=== PATIENT | female | born 1985 | race American Indian/Alaskan Native ===

== ENCOUNTER 2016-07-25 10:41 | Emergency (ER) | payer SELFPAY ==
[2016-07-25 10:42] VITALS: BP 119/74; PULSE 98; RESP 16; TEMP 97; O2SAT 100
[2016-07-25 10:43] VITALS: BMI 24.0
--- NOTE | 2016-07-25 11:33 | ED PDOC ---
HPI: Psych/Substance Abuse Time Seen by Provider: 07/25/16 11:31 Chief Complaint (Nursing): Substance Abuse Chief Complaint (Provider): SUBSTANCE ABUSE History Per: Patient (30 Y/O FEMALE BROUGHT BY EMS FOR EVALUATION OF UNRESPONSIVENESS NOTED BY [employer]. PATIENT ADMITS HEROIN USE 6 HOURS PRIOR AND STATES SHE WAS WAITING FOR BROTHER IN LAW TO COME HOME [place]. STATES SHE HAD LOSS OF CONSCIOUSNESS AND HEAD INJURY 2 DAYS AGO. WAS SEEN AT [facility] AND EVALUATED THAT DAY. NOTES MILD HEADACHE TODAY BUT ATTRIBUTES TO "BEING IRRITATED." NO VOMITING/ETC.) Past Medical History Reviewed: Historical Data, Nursing Documentation, Vital Signs Vital Signs: Last Vital Signs Temp 97 F L 07/25/16 10:42 Pulse 98 H 07/25/16 10:42 Resp 16 07/25/16 10:42 BP 119/74 07/25/16 10:42 Pulse Ox 100 07/25/16 10:42 - Medical History PMH: Anxiety, Bipolar Disorder - Family History Family History: States: No Known Family Hx - Allergies Allergies/Adverse Reactions: Allergies Allergy/AdvReac Type Severity Reaction Status Date / Time Unobtainable Allergy Verified 07/25/16 10:48 Review of Systems ROS Statement: Except As Marked, All Systems Reviewed And Found Negative Physical Exam - Reviewed Nursing Documentation Reviewed: Yes Vital Signs Reviewed: Yes - Physical Exam Appears: Positive for: Well, Non-toxic, No Acute Distress Head Exam: Positive for: ATRAUMATIC, NORMAL INSPECTION, NORMOCEPHALIC Skin: Positive for: Normal Color, Warm, DRY Eye Exam: Positive for: EOMI, Normal appearance, PERRL ENT: Positive for: Normal ENT Inspection Neck: Positive for: Normal, Painless ROM Cardiovascular/Chest: Positive for: Regular Rate, Rhythm Respiratory: Positive for: CNT, Normal Breath Sounds Gastrointestinal/Abdominal: Positive for: Normal Exam, Bowel Sounds, Soft Back: Positive for: Normal Inspection Extremity: Positive for: Normal ROM Neurologic/Psych: Positive for: Alert, Oriented - Laboratory Results Result Diagrams: 07/25/16 11:37 07/25/16 11:37 - ECG O2 Sat by Pulse Oximetry: 100 - Progress ED Course And Treament: PATIENT ALERT IN ED. DOES NOT WANT HEAD CT EVALUATION. HAS CALLED HER SISTER TO PICK HER UP. WILL AWAIT ETOH LEVEL AND OBSERVE FOR SOBRIETY. OBSERVED IN ED WITH NO WORSENING OF MENTATION. SISTER IN ED TO TAKE PATIENT HOME. Disposition - Clinical Impression Clinical Impression: Polysubstance abuse - Patient ED Disposition Is Patient to be Admitted: No - Disposition Referrals: [facility] [Outside] Disposition: Routine/Home Disposition Time: 12:22 Condition: FAIR Instructions: Polysubstance Abuse (ED)
[2016-07-25 11:42] LABS: BASO # 0.1 K/uL (0.0-0.2); EOS # 0.5 K/uL (0.0-0.7); EOS % 8.5 % (0.0-4.0); HEMATOCRIT 40.8 % (34.0-47.0); LYMPH # 2.3 K/uL (1.0-4.3); LYMPH % 36.5 % (20.0-40.0); MEAN CELL VOLUME 90.7 fl (81.0-99.0); MEAN CORPUSCULAR HEMOGLOBIN 30.2 pg (27.0-31.0); MEAN CORPUSCULAR HGB CONC 33.3 g/dL (33.0-37.0); MEAN PLATELET VOLUME 7.3 fl (7.2-11.7); MONO # 0.7 K/uL (0.0-0.8); MONO % 11.6 % (0.0-10.0); NEUT # 2.7 K/uL (1.8-7.0); NEUT % 42.4 % (50.0-75.0); RED CELL DISTRIBUTION WIDTH 13.6 % (11.5-14.5); WHITE BLOOD COUNT 6.4 K/uL (4.8-10.8)
[2016-07-25 12:01] LABS: ALB/GLOB RATIO 1.1 (1.0-2.1); ALCOHOL SERUM < 10 mg/dl (0-10); ALKALINE PHOSPHATASE 96 U/L (38-126); ALT/SGPT 106 U/L (9-52); AST/SGOT 72 U/L (14-36); BILIRUBIN,TOTAL 0.6 mg/dl (0.2-1.3); BLOOD UREA NITROGEN 13 mg/dl (7-17); CALCIUM 9.4 mg/dL (8.4-10.2); CARBON DIOXIDE 28 mmol/L (22-30); CHLORIDE 107 mmol/L (98-107); GFR AFRICAN-AMERICAN > 60; GLUCOSE,RANDOM 112 mg/dL (65-105); POTASSIUM 3.9 MMOL/L (3.6-5.0); SODIUM 147 mmol/l (132-148); TOTAL PROTEIN 7.7 G/DL (6.3-8.2)
== END 2016-07-25 12:59 | disposition home or self-care (01) ==
LOC: H.ER 10:41
DX: F19.10 Other psychoactive substance abuse, uncomplicated (principal); Z86.59 Personal history of other mental and behavioral disorders
CPT/HCPCS: 80053; 81025; 85025; 99282; G0480